=== PATIENT | female | born 1990 | race Two or more races ===

== ENCOUNTER 2021-01-12 06:17 | Emergency (ER) | payer OTHER, MEDICAID ==
[~2021-01-12] VITALS: Ht 170.2 cm; Wt 81.6 kg
[2021-01-12 06:17] VITALS: BP 120/74
[2021-01-12 07:07] LABS: Urine Bacteria FEW /hpf (None Seen); Urine Blood 1+ /uL (Negative); Urine Mucus FEW (None Seen); Urine Specific Gravity 1.019 (1.001-1.035); Urine WBC 45 /hpf (0 - 5)
[2021-01-13] MEDS ORDERED: PREN1TAB71 OR (04:33)
== END 2021-01-12 06:43 | disposition left against medical advice (07) ==
LOC: ER 06:17
DX: R10.84 Generalized abdominal pain (principal); Z53.29 Procedure and treatment not carried out because of patient's decision for other reasons
CPT/HCPCS: 81001

== ENCOUNTER 2021-01-12 09:17 | Inpatient (IN) | payer OTHER, MEDICAID ==
[2021-01-12] VITALS (10 sets, daily range): BP systolic 101–124; BP diastolic 53–73
[~2021-01-12] VITALS: Ht 170.2 cm; Wt 97.5 kg
[2021-01-12] MEDS ORDERED: LACT. RINGERS/OXYTOCIN 20UNITS 1,000 ML IV SCH (10:00)
[2021-01-12] MEDS ORDERED: miSOPROStol 100 mcg TAB SL PRN (10:00)
[2021-01-12] MEDS ORDERED: DIPHENOXYLATE W/ATROPINE 2.5 MG TAB PO PRN (10:00)
[2021-01-12] MEDS ORDERED: PHISODERM TOP SOLN 240ML BTL TOP PRN (10:00)
[2021-01-12] MEDS ORDERED: LACTATED RINGER'S 1,000 ML IV SCH ×2 (10:00→23:00)
[2021-01-12] MEDS ORDERED: CARBOPROST TROMETHAMINE 250 MCG/1ML VIAL IM PRN (10:00)
[2021-01-12] MEDS ORDERED: LACT. RINGERS/OXYTOCIN 20UNITS 500 ML IV ONE ×2 (10:00→10:30)
[2021-01-12] MEDS ORDERED: METHYLERGONOVINE MALEATE 0.2 MG/ML AMP IM PRN ×2 (10:00→10:45)
[2021-01-12] MEDS ORDERED: DERMOPLAST 60ML BOTTLE TOP PRN (10:00)
[2021-01-12] MEDS ORDERED: LIDOCAINE 2%HCL (LOCAL ANESTH.) INJ 20ML MDV IJ PRN (10:00)
[2021-01-12] MEDS ORDERED: WITCH HAZEL-GLYCERIN PAD TOP PRN (10:00)
[2021-01-12] MEDS ORDERED: ONDANSETRON HCL 4 MG/2 ML VIAL IV PRN ×3 (10:00→15:15)
[2021-01-12] MEDS ORDERED: PENICILLIN G POT 5MIL/D5 50ML 50 ML IV ONE (10:00)
[2021-01-12] MEDS ORDERED: TERBUTALINE SULFATE 1 MG/ML 1ML VIAL SC ONE (10:00)
[2021-01-12] MEDS ORDERED: miSOPROStol 100 mcg TAB PR PRN (10:00)
[2021-01-12 10:30] LABS: Basophils # (auto) 0 10 ^3/uL (0-0.2); Eosinophils # (auto) 0 10 ^3/uL (0-0.8); Hematocrit 31.4 % (36.0-46.0); Lymphocytes # (auto) 0.9 10 ^3/uL (0.4-5.4); White Blood Cell 8.4 10^3/uL (4.4-10.8)
[2021-01-12 10:32] LABS: Basophils % (auto) 0.6 % (0.0-2.0); Hemoglobin 10.6 g/dL (12.2-16.2); Lymphocytes % (auto) 10.1 % (10.0-50.0); Mean Corpuscular Hemoglobin 26.7 pg (28.0-32.0); Mean Corpuscular Hgb Conc. 33.7 g/dL (32.0-36.0); Mean Corpuscular Volume 79.2 fL (80.0-100.0); Monocytes # (auto) 0.4 10 ^3/uL (0-1.3); Monocytes % (auto) 4.8 % (0.0-12.0); Neutrophils # (auto) 7.1 10 ^3/uL (1.6-8.6); Neutrophils % (auto) 84.5 % (37.0-80.0); Red Blood Cells 3.96 10^6/uL (4.0-5.20); Red Cell Distribution Width 14.9 % (11.8-14.3)
[2021-01-12 10:34] LABS: Urine Bacteria NONE SEEN /hpf (None Seen); Urine Blood 3+ /uL (Negative); Urine Mucus FEW (None Seen); Urine Specific Gravity 1.022 (1.001-1.035); Urine WBC 38 /hpf (0 - 5)
[2021-01-12 10:45] LABS: INR 0.9 (0.9-1.15)
[2021-01-12] MEDS ORDERED: miSOPROStol 100 mcg TAB SL ONE (10:45)
[2021-01-12] MEDS ORDERED: miSOPROStol 100 mcg TAB PR ONE (10:45)
[2021-01-12 10:49] LABS: Alcohol, Urine < 3.0 mg/dL (0-10); Amphetamine Screen, Urine NEGATIVE (NEGATIVE); Barbiturate Scree,Urine NEGATIVE (NEGATIVE); Benzodiazephine Screen, Urine NEGATIVE (NEGATIVE); Cannabinoid Screen, Urine NEGATIVE (NEGATIVE); Cocaine Screen, Urine NEGATIVE (NEGATIVE); Opiate Scree,Urine NEGATIVE (NEGATIVE); Phencyclidine Screen, Urine NEGATIVE (NEGATIVE); Potassium 3.6 mmol/L (3.5-5.1)
[2021-01-12 10:55] LABS: Albumin 2.7 g/dL (3.4-5.0); BUN/Creatinine Ratio 10.2; Bilirubin, Total 0.7 mg/dL (0.2-1.0); Calcium 8.8 mg/dL (8.5-10.1); Total Protein 7.2 g/dL (6.4-8.2)
[2021-01-12] MEDS ORDERED: BUTORPHANOL TARTRATE 2 MG/1 ML VIAL IV ONE (11:15)
[2021-01-12] MEDS ORDERED: LIDOCAINE HCL 2 %PF INJ 10ML AMP IJ ONE (11:30)
[2021-01-12] MEDS ORDERED: NALOXONE HCL 0.4 MG/ML VIAL IV ONE ×2 (11:30→11:45)
[2021-01-12] MEDS ORDERED: fentaNYL CITRATE 100 MCG/2 ML VL IV ONE (11:30)
[2021-01-12] MEDS ORDERED: ePHEDrine SULFATE 50 MG/ML AMP IV ONE ×2 (11:30→11:45)
[2021-01-12] MEDS ORDERED: ROPIVACAINE HCL 200 ML EPI SCH ×2 (11:30→11:45)
[2021-01-12] MEDS ORDERED: fentaNYL CITRATE 100 MCG/2 ML VL EPI ONE (11:45)
[2021-01-12] MEDS ORDERED: LACTATED RINGER'S 1,000 ML IV ONE (11:45)
[2021-01-12] MEDS ORDERED: TETRACAINE 1% INJ 2 ML VIAL IJ ONE (13:33)
[2021-01-12] MEDS ORDERED: fentaNYL CITRATE 100 MCG/2 ML VL ONE (13:35)
[2021-01-12] MEDS ORDERED: MORPHINE SULF(PF) 0.5MG/ML 10ML VIAL ONE (13:35)
[2021-01-12] MEDS ORDERED: PENICILLIN G POTASSIUM 2,500,000 UNITS in D5W 5% 50 ML IV SCH (14:00)
[2021-01-12] MEDS ORDERED: CARBOPROST TROMETHAMINE 250 MCG/1ML VIAL IM ONE (14:20)
[2021-01-12] MEDS ORDERED: METHYLERGONOVINE MALEATE 0.2 MG/ML AMP IM ONE ×2 (14:23→14:24)
[2021-01-12] MEDS ORDERED: ePHEDrine SULFATE 50 MG/ML AMP ONE (14:58)
[2021-01-12] MEDS ORDERED: ceFAZolin 1GM/50ML 50 ML IV SCH (15:00)
[2021-01-12] MEDS ORDERED: LACT. RINGERS/OXYTOCIN 20UNITS 1,000 ML IV ONE (15:00)
[2021-01-12] MEDS ORDERED: MORPHINE SULF INJ 2 MG/ML SYRINGE 1ML IV PRN (15:00)
[2021-01-12] MEDS ORDERED: GUM (CHEWING) 1 GUM CHEW CHEW ONE (15:00)
[2021-01-12] MEDS ORDERED: diphenhdrAMINE HCL 50 MG/1 ML VL IV PRN (15:15)
[2021-01-12] MEDS ORDERED: HYDROmorphone HCL 2 MG/ML VL IV PRN (15:15)
[2021-01-12] MEDS ORDERED: DexAMETHasone SOD PHOS 10MG/1ML VIAL INJ IV PRN (15:15)
[2021-01-12] MEDS ORDERED: NALOXONE HCL 0.4 MG/ML VIAL IV PRN (15:15)
[2021-01-12] MEDS ORDERED: KETOROLAC TROMETH 30 MG/ML 1ML VIAL IV PRN (15:15)
[2021-01-12] MEDS ORDERED: NALBUPHINE HCL 10 MG/1ml INJECTION SUBCUT ONE (15:15)
[2021-01-12] MEDS: ACETAMINOPHEN IV 1000 MG/100ML (10MG/ML) IV SCH ×2 (17:45→22:00)
[2021-01-12 21:26] LABS: Eosinophils # (auto) 0 10 ^3/uL (0-0.8); Lymphocytes # (auto) 1.3 10 ^3/uL (0.4-5.4); Mean Corpuscular Volume 79.6 fL (80.0-100.0)
[2021-01-12 21:28] LABS: Basophils # (auto) 0.1 10 ^3/uL (0-0.2); Basophils % (auto) 0.4 % (0.0-2.0); Lymphocytes % (auto) 8.8 % (10.0-50.0); Mean Corpuscular Hemoglobin 26.4 pg (28.0-32.0); Mean Corpuscular Hgb Conc. 33.2 g/dL (32.0-36.0); Monocytes # (auto) 0.7 10 ^3/uL (0-1.3); Monocytes % (auto) 5.2 % (0.0-12.0); Neutrophils # (auto) 12.2 10 ^3/uL (1.6-8.6); Neutrophils % (auto) 85.6 % (37.0-80.0); Red Blood Cells 3.39 10^6/uL (4.0-5.20); White Blood Cell 14.3 10^3/uL (4.4-10.8)
[2021-01-12] MEDS: ceFAZolin 1GM/50ML 50 ML IV SCH (22:16)
[2021-01-13] VITALS (27 sets, daily range): BP systolic 79–108; BP diastolic 36–68
[2021-01-13] MEDS ORDERED: ACETAMINOPHEN IV 1000 MG/100ML (10MG/ML) IV PRN (01:00)
[2021-01-13] MEDS ORDERED: PREN1TAB71 OR (04:33)
[2021-01-13 05:06] LABS: RPR Non Reactive (Non Reactive)
[2021-01-13] MEDS ORDERED: BISACODYL 10 MG RECT SUPP PR PRN (05:15)
[2021-01-13] MEDS ORDERED: HYDROcodone-ACET 5/325MG TAB PO PRN (05:15)
[2021-01-13 06:06] LABS: Rubella Antibodies, IgG 1.72 index (Immune >0.99)
[2021-01-13] MEDS: SIMETHICONE 80 MG CHEWABLE TABLET PO SCH ×4 (06:19→21:58)
[2021-01-13] MEDS: ceFAZolin 1GM/50ML 50 ML IV SCH (06:19)
[2021-01-13] MEDS ORDERED: SODIUM CHLORIDE 0.9% 1,000 ML IV SCH (07:30)
[2021-01-13 08:00] LABS: Basophils # (auto) 0 10 ^3/uL (0-0.2); Basophils % (auto) 0.4 % (0.0-2.0); Eosinophils # (auto) 0 10 ^3/uL (0-0.8); Hemoglobin 7.7 g/dL (12.2-16.2); Lymphocytes # (auto) 1.6 10 ^3/uL (0.4-5.4); Monocytes # (auto) 0.6 10 ^3/uL (0-1.3); White Blood Cell 10.4 10^3/uL (4.4-10.8)
[2021-01-13 08:03] LABS: Eosinophils % (auto) 0.3 % (0.0-7.0); Hematocrit 22.4 % (36.0-46.0); Lymphocytes % (auto) 14.9 % (10.0-50.0); Mean Corpuscular Hemoglobin 27.3 pg (28.0-32.0); Mean Corpuscular Hgb Conc. 34.4 g/dL (32.0-36.0); Mean Corpuscular Volume 79.2 fL (80.0-100.0); Monocytes % (auto) 5.8 % (0.0-12.0); Neutrophils # (auto) 8.2 10 ^3/uL (1.6-8.6); Neutrophils % (auto) 78.6 % (37.0-80.0); Red Blood Cells 2.82 10^6/uL (4.0-5.20); Red Cell Distribution Width 14.7 % (11.8-14.3)
[2021-01-13] MEDS: IBUPROFEN 800 MG TAB PO PRN ×2 (08:39→16:51)
[2021-01-13] MEDS: DOCUSATE SOD 100 MG CAP PO SCH ×2 (10:23→21:58)
[2021-01-13] MEDS ORDERED: ceFAZolin 1GM/50ML 50 ML IV SCH (14:00)
[2021-01-13] MEDS: FERROUS SULFATE 325mg EC TAB PO SCH ×2 (15:57→21:58)
[2021-01-13 22:15] LABS: Basophils # (auto) 0.1 10 ^3/uL (0-0.2); Basophils % (auto) 1.1 % (0.0-2.0); Eosinophils # (auto) 0.1 10 ^3/uL (0-0.8); Eosinophils % (auto) 0.6 % (0.0-7.0); Hematocrit 26.1 % (36.0-46.0); Hemoglobin 9.2 g/dL (12.2-16.2); Lymphocytes # (auto) 1.8 10 ^3/uL (0.4-5.4); Lymphocytes % (auto) 16.5 % (10.0-50.0); Mean Corpuscular Hemoglobin 27.9 pg (28.0-32.0); Mean Corpuscular Hgb Conc. 35.2 g/dL (32.0-36.0); Mean Corpuscular Volume 79.3 fL (80.0-100.0); Monocytes # (auto) 0.6 10 ^3/uL (0-1.3); Monocytes % (auto) 5.8 % (0.0-12.0); Neutrophils # (auto) 8.1 10 ^3/uL (1.6-8.6); Red Blood Cells 3.29 10^6/uL (4.0-5.20); Red Cell Distribution Width 15.1 % (11.8-14.3); White Blood Cell 10.7 10^3/uL (4.4-10.8)
[2021-01-14] MEDS: ceFAZolin 1GM/50ML 50 ML IV SCH ×3 (00:56→17:21)
[2021-01-14] MEDS: IBUPROFEN 800 MG TAB PO PRN ×3 (00:57→15:02)
[2021-01-14 02:59] VITALS: BP 91/45
[2021-01-14] MEDS: FERROUS SULFATE 325mg EC TAB PO SCH ×3 (06:57→22:05)
[2021-01-14] MEDS: SIMETHICONE 80 MG CHEWABLE TABLET PO SCH ×4 (06:58→22:05)
[2021-01-14 07:07] VITALS: BP_SYST 105; BP_SYST 99; BP_DIAS 57; BP_DIAS 65
[2021-01-14 10:48] VITALS: BP 106/66
[2021-01-14] MEDS: DOCUSATE SOD 100 MG CAP PO SCH ×2 (11:59→22:05)
[2021-01-14 15:03] VITALS: BP 108/72
[2021-01-14 19:18] VITALS: BP 108/68
[2021-01-14] MEDS: HYDROcodone-ACET 5/325MG TAB PO PRN (21:22)
[2021-01-14] MEDS ORDERED: TETANUS-DIPTH-ACEL PERTUSSIS 0.5ML SYR Tdap IM ONE (22:00)
[2021-01-14 23:01] VITALS: BP 106/64
[2021-01-15] MEDS: ceFAZolin 1GM/50ML 50 ML IV SCH ×2 (00:52→08:54)
[2021-01-15] MEDS: IBUPROFEN 800 MG TAB PO PRN (02:58)
[2021-01-15 03:00] VITALS: BP 97/62
[2021-01-15] MEDS: FERROUS SULFATE 325mg EC TAB PO SCH (05:33)
[2021-01-15] MEDS: SIMETHICONE 80 MG CHEWABLE TABLET PO SCH (05:33)
[2021-01-15 06:54] VITALS: BP 98/58
[2021-01-15] MEDS: HYDROcodone-ACET 5/325MG TAB PO PRN (08:54)
[2021-01-15 11:00] VITALS: BP 100/62
== END 2021-01-15 12:20 | disposition home or self-care (01) | DRG 788 ==
LOC: LDRP 09:17 → OBSVTOIN 09:47 → LDRP 09:49
PROVIDERS: ADMIT Obstetrics & Gynecology; ATTEND Obstetrics & Gynecology
PROC: 10D00Z1 Extraction of Products of Conception, Low, Open Approach (ICD-10-PCS; principal; 2021-01-12 13:40)
DX: O69.81X0 Labor and delivery complicated by cord around neck, without compression, not applicable or unspecified (principal); O76 Abnormality in fetal heart rate and rhythm complicating labor and delivery; Z37.0 Single live birth; Z3A.01 Less than 8 weeks gestation of pregnancy; Z3A.37 37 weeks gestation of pregnancy; Z20.822 Contact with and (suspected) exposure to COVID-19
CPT/HCPCS: 36415; 59025; 62282; 76805; 80053; 80307; 81001; 84702; 85025; 85610; 85730; 86592; 86703; 86762; 86850; 86900; 86901; 86920; 87340; 87426; 90715; 94760; 94762; 96360; 96361; 96374; G0378; J0131; J0690; J2540; J2590; J7060